=== PATIENT | female | born 2000 | race Caucasian/White ===

== ENCOUNTER 2025-03-05 13:34 | Outpatient (REF) | payer OTHER, SELFPAY ==
--- OUTSIDE RECORDS SUMMARY | 2025-03-05 13:00 | XMS_ITS | Encounter Summary ---
Author Organization [employer] Address [address] [facility] 7t [place] [address] Care Team Providers Care Recreational Programs Director Name Role Phone Keira Wakefield MD Primary Care Provider [phone] Reason for Visit * Reason Comments new pt Encounter Details Date Type Department Care Team (Late st Contact Info) Description 03/05/2025 1:00 PM EDT Office Visit [facility] MED[facility]INE [address] [place], [place] [phone] Keira Wakefield MD [address] [place], [place] [phone] Dietary counseling; Exercise counseling; Class 1 obesity without serious comorbidity with body mass index (BMI) of 34.0 to 34.9 in adult, unspecified obesity type; Encounter for immunization Social History Tobacco Use Types Packs/Day Years Used Date Smoking Tobacco: Never Assessed Housing Stability Answer Date Recorded What is your housing situation today? I have ashley polo 02/25/[address] you li ve. Do you have problems with any of the following? None of the above 02/25/2025 Food Insecurity Answer Date Recorded Within the past 12 months, y ou worried that your food would run out before you got money to buy more: Never True 02/25/2025 Within the past 12 months,th e food you bought just didn't last and you didn't have enough money to get more: Never True Transportation Answer Date Recorded In the past 12 months, has l ack of transportation kept you from medical appts, meetings, work or from getting things needed for daily living? No 02/25/2025 Utilities Answer Date Recorded In the past 12 months, has t he electric, gas, oil or water company threatened to shut off services in your home? No 02/25/2025 Internet Access Answer Date Recorded Internet Access Q1 Yes 02/25/2025 Internet Access Q2 Not on file 02/25/2025 Comments Unknown Sex and Gender Information Value Date Recorded Sex Assigned at Female 03/05/2025 8:30 AM EDT Legal Sex Female 3:29 PM EST Gender Identity Female 03/05/2025 8:30 AM EDT Sexual Orientation Don't know 03/04/2025 2: 03 PM EDT documented as of this encounter Last Filed Vital Signs Vital Sign Reading Time Taken Comments Blood Pressure 108/60 03/05/2025 1:07 PM EDT Pulse 60 03/05/2025 1:07 PM EDT Temperature 36.9 C (98.4 F) 03/05/2025 1:07 PM EDT Respiratory Rate 21 03/05/2025 1:07 PM EDT Oxygen Saturation - - Inhaled Oxygen Concentration - - Weight 85.7 kg (189 lb) 03/05/2025 1:07 PM EDT Height 157.5 cm (5' 2 ) 03/05/2025 1:07 PM EDT Body Mass Index 34.57 03/05/2025 1:07 PM EDT documented in this encounter Plan of Treatment Scheduled Orders Name Type Priority Associated Diagnoses Orde r Schedule Comprehensive Metabolic Panel Lab Routine Class 1 obesity without serious comorbidity with body mass index (BMI) of 34.0 to 34.9 in adult, unspecified obesity type Expected: 03/05/2025 (Approximate), Expires: 03/05/2026 Hemoglobin A1c Lab Routine Class 1 obesity without serious comorbidity with body mass index (BMI) of 34.0 to 34.9 in adult, unspecified obesity type Expected: 03/05/2025 (Approximate), Expires: 03/05/2026 Lipid Panel, Standard Lab Routine Class 1 obesity without serious comorbidity with body mass index (BMI) of 34.0 to 34.9 in adult, unspecified obesity type Expected: 03/05/2025 (Approximate), Expires: 03/05/2026 TSH W/Reflex to FT4 Lab Routine Class 1 obesity without serious comorbidity with body mass index (BMI) of 34.0 to 34.9 in adult, unspecified obesity type Expected: 03/05/2025 (Approximate), Expires: 03/05/2026 documented as of this encounter Visit Diagnoses Diagnosis Dietary counseling Dietary surveillance and counseling Exercise counseling Class 1 obesity without serious comorbidity with body mass index (BMI) of 34.0 to 34.9 in adult, unspecified obesity type Encounter for immunization documented in this encounter Care Teams Recreational Programs Director Relationship Specialty Start Date End Date Keira Wakefield MD [address] [place] [id number] PCP - General Family Medicine 03/05/25 documented as of this encounter
--- OUTSIDE RECORDS SUMMARY | 2025-03-05 13:51 | XMS_ITS | Clinical Summary ---
Author Organization [employer] Address [address] [facility] [address] [place] [address] Care Team Providers Care Glazier Artist Name Role Phone Keira Wakefield MD Primary Care Provider [phone] Allergies No known active allergies Medications Eye Itch Relief 0.035 % solution 03/26/20 24 Active valACYclovir (Valtrex) 500 MG tablet 01/15/20 25 Active omeprazole (PriLOSEC) [address] capsule Take 1 capsule (40 mg) by mouth before breakfast. Do not crush or chew. 90 capsule 3 03/05/20 25 Active cetirizine (ZyrTEC) 10 MG tablet Take 1 tablet (10 mg) by mouth Once per day. 90 tablet 3 03/05/20 25 Active albuterol 108 (90 Base) MCG/ACT inhaler Inhale 2 puffs every 6 (six) hours if needed for wheezing. 18 g 11 03/05/20 25 Active albuterol 108 (90 Base) MCG/ACT inhaler 03/26/20 24 025 Discontinued(Re order (will not trigger notification to Pharmacy)) cetirizine (ZyrTEC) 10 MG tablet 03/26/20 025 Discontinued(Re order (will not trigger notification to Pharmacy)) omeprazole (PriLOSEC) [address] capsule 03/26/20 025 Discontinued(Re order (will not trigger notification to Pharmacy)) Active Problems No known active problems Encounters Date Type Department Care Team Description 03/05/2025 1:00 PM EDT Office Visit [facility] [address] [place] [address] Keira Wakefield MD Dietary counseling; Exercise counseling; Class 1 obesity without serious comorbidity with body mass index (BMI) of 34.0 to 34.9 in adult, unspecified obesity type; Encounter for immunization 03/05/2025 Travel 03/04/2025 Telephone [facility] [address] [place] [address] Keira Wakefield MD chart prep 02/25/2025 Patient Outreach [facility] [address] [place] [address] Keira Wakefield MD Pre-visit Planning (SDOH screening negative and tobacco screening negative) from Last 3 Months Immunizations Immunization Administration Dates Next Due Influenza, seasonal, injectable, preservative fr ee 03/05/2025 Social History Tobacco Use Types Packs/Day Years Used Date Smoking Tobacco: Never Assessed Housing Stability Answer Date Recorded What is your housing situation today? I have ashley melani 02/25/[address] you li [...] Don't know 03/04/2025 2: 03 PM EDT Last Filed Vital Signs Vital Sign Reading [...] Mass Index 34.57 03/05/2025 1:07 PM EDT Plan of Treatment Health Maintenance Due Date Last Done Comments Depression Screening 1998 HIV Screening 1998 Disability Screening 1998 Alcohol/Substance Use Screening 2010 Tobacco Screening 2010 Family Planning (PISQ) 2013 HPV Vaccines (1 - 3-dose series) 2013 Hepatitis C Screening 2016 DTaP/Tdap/Td Vaccines (1 - Tdap) 2017 Hepatitis B Vaccines (1 of 3 - 19+ 3-dose series) 2017 Pap Smear 2019 COVID-19 Vaccine (1 - 2023-2 5 season) 2025 SDOH Screening 02/25/2026 02/25/2025 Zoster Vaccines (1 of 2) 2048 RSV Patients and Pa tients Aged 60 years or older (1 - 1-dose 75+ series) 2073 Influenza Vaccine Completed 03/05/2025 HIB Vaccines Aged Out No longer eligi ble based on patient's age to complete this topic Hepatitis A Vaccines Aged Out No long er eligible based on patient's age to complete this topic IPV Vaccines Aged Out No longer eligi ble based on patient's age to complete this topic Meningococcal B Vaccine Aged Out No l onger eligible based on patient's age to complete this topic Meningococcal Vaccine Aged Out No earline jose eligible based on patient's age to complete this topic Pneumococcal Vaccine: Pediat rics (0 to 5 Years) and At-Risk Patients (6 to 49) Years Aged Out No longer eligi ble based on patient's age to complete this topic RSV under 20 months Aged Out No longe r eligible based on patient's age to complete this topic Rotavirus Vaccines Aged Out No longer eligible based on patient's age to complete this topic Insurance [facility] Care Teams Glazier Artist Relationship Specialty Start Date End Date Keira Wakefield MD [address] [place] [address] PCP - General Family Medicine 03/05/25
--- OUTSIDE RECORDS SUMMARY | 2025-03-05 13:51 | XMS_ITS | Encounter Summary ---
Author Organization [employer] Address [address] [facility] 7[address] [place] [address] Care Team Providers Care Turning And Beading Machine Operator Name Role Phone Keira Wakefield MD Primary Care Provider [phone] Encounter Details Date Type Department Care Team (Late st Contact Info) Description 12/01/2024 Telephone [facility] MED[facility] [address] [place], [place] [phone] Jayashree Larios MD [address] [place], [place] [phone] Social History Tobacco Use Types Packs/Day Years Used Date Smoking Tobacco: Never Assessed Comments Unknown Sex and Gender Information Value Date Recorded Sex Assigned at Female 03/05/2025 8:30 AM EDT Legal Sex Female 3:29 PM EST Gender Identity Female 03/05/2025 8:30 AM EDT Sexual Orientation Don't know 03/04/2025 2: 03 PM EDT documented as of this encounter Miscellaneous Notes * Telephone Encounter - Kisha Krishna - 12/01/2024 10:01 AM EDT Outgoing call to r/s new patient appointment. No answer. LV. documented in this encounter Plan of Treatment Not on file documented as of this encounter Visit Diagnoses Not on filedocumented in this encounter Care Teams Turning And Beading Machine Operator Relationship Specialty Start Date End Date Keira Wakefield MD [address] [place] [address] PCP - General Family Medicine 03/05/25 documented as of this encounter
--- OUTSIDE RECORDS SUMMARY | 2025-03-05 13:51 | XMS_ITS | Encounter Summary ---
Author Organization [employer] Address [address] [facility] [address] [place] [address] Care Team Providers Care Toy Maker Name Role Phone Keira Wakefield MD Primary Care Provider [phone] Encounter Details Date Type Department Care Team (Latest Contact Info) Description 03/05/2025 Travel Social History Tobacco Use Types Packs/Day Years [...] PM EDT documented as of this encounter Plan of Treatment Not on file documented as of this encounter Visit Diagnoses Not on filedocumented in this encounter Care Teams Toy Maker Relationship Specialty Start Date End Date Keira Wakefield MD [address] [place] [address] PCP - General Family Medicine 03/05/25 documented as of this encounter
--- OUTSIDE RECORDS SUMMARY | 2025-03-05 13:51 | XMS_ITS | Encounter Summary ---
Author Organization [employer] Address [address] [facility] [address] [place] [address] Care Team Providers Care Painting Instructor Name Role Phone Unavailable Primary Care Provider Unavailabl e Reason for Visit * Reason Onset Date Comments chart prep 03/04/2025 Encounter Details Date Type Department Care Team (Late st Contact Info) Description 03/04/2025 Telephone [facility] [address] [place], [place] [phone] Keira Wakefield MD [address] [place], [place] [phone] chart prep Social History Tobacco Use Types Packs/Day Years [...] encounter Miscellaneous Notes * Telephone Encounter - Poly Burger [place] - 03/04/2025 11:27 AM EDT Chart Prep Labs: not applicable Images: not applicable Referrals: not applicable Vaccines due: Covid, Flu, Tdap, and Hep B Screenings: pap smear Overdue care gaps: SBIRT, PHQ-9, ZACHARY-7, and Disability screen documented in this encounter Plan of Treatment Not on file documented as of this encounter Visit Diagnoses Not on filedocumented in this encounter
[2025-03-05 16:31] LABS: Hemoglobin A1C 103.5472 umol/L
[2025-03-05 16:47] LABS: Alanine Aminotransferase 16 U/L (0-31); Albumin Level 4.4 g/dL (3.5-5.0); Alkaline Phosphatase 73 U/L (39-117); Anion Gap 10 (12-20); Aspartate Amino Transferase 26 U/L (5-31); Blood Urea Nitrogen 12 mg/dL (9-16); Calcium 9.2 mg/dL (8.4-10.2); Carbon Dioxide 27 mmol/L (22-29); Chloride 106 mmol/L (96-108); Cholesterol 139 mg/dL (<200); Estimated Glomerular Filt Rate > 60; HDL Cholesterol 37 mg/dL (>40); Potassium 3.9 mmol/L (3.3-5.1); Sodium 139 mmol/L (135-145); Total Protein 7.7 g/dL (6.5-8.0); Triglycerides 47 mg/dL (<150)
== END 2025-03-05 13:35 | disposition home or self-care (01) ==
LOC: HO.HHCL 13:34
PROVIDERS: PCP General Practice; Visit Provider General Practice
DX: E66.811 Obesity, class 1 (principal); Z68.34 Body mass index [BMI] 34.0-34.9, adult
CPT/HCPCS: 36415; 80053; 80061; 83036; 84443